=== PATIENT | male | born 1995 | race Caucasian/White ===

== ENCOUNTER → 2018-10-04 | Outpatient (CLI) | payer MEDICAID ==
--- NOTE | 2018-10-05 19:40 | MR ---
MR scan of the right wrist. History pain. Comparison none. TECHNIQUE: Multiplanar multiecho imaging of the right wrist was performed with no contrast. FINDINGS: On the T1 images there is abnormal decreased signal throughout the lunate bone which is somewhat smal l and consistent with chronic avascular necrosis. The other carpal bones appear intact. I see no frac ture line. The flexor and extensor tendons of the hand and wrist appear intact. The intercarpal joint spaces are fairly normal. The distal radius and ulna have normal signal pattern without evidence of edema. Ther e is minimal wrist joint effusion. There is mild soft tissue edema anterior to the distal radius and ulna epiphyses. 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 Mild wrist joint effusion consistent w ith nonspecific mild synovitis. No acute bony abnormality seen. Mild soft tissue edema noted anterior to the distal radius and ulna.
== END | disposition home or self-care (01) ==
LOC: RADMRIMAIN 14:32
PROVIDERS: ATTEND Orthopaedic Surgery
DX: M87.037 Idiopathic aseptic necrosis of right carpus (principal); M25.431 Effusion, right wrist

== ENCOUNTER 2018-11-01 20:26 | Emergency (ER) | payer MEDICAID ==
[2018-11-01 20:34] VITALS: BP 111/58; PULSE 98; RESP 18; TEMP 98.3
--- NOTE | 2018-11-01 20:51 | ED ---
General Adult HPI - General Chief complaint: Recheck/Abnormal Lab/Rx Stated complaint: Got cast wet Time Seen by Provider: 11/01/18 20:35 Source: patient, RN notes reviewed Mode of arrival: ambulatory Limitations: no limitations - History of Present Illness Initial comments: 23-year-old male presents emergency department with chief complaint of needing cast replaced. Patient states he had surgery on Sunday by Dr. Macias. Patient states that he was showering states that his bag leak causing his cast of it well. Patient called on-call orthopedic resident to be seen in emergency from for replacement. Patient states that he had surgery on his carpal bones of his right wrist. The states that the pain is controlled has no other complaints. - Related Data Allergies Allergy/AdvReac Type Severity Reaction Status Date / Time No Known Allergies Allergy Verified 11/01/18 20:34 Review of Systems ROS Statement: Those systems with pertinent positive or pertinent negative responses have been documented in the HPI. ROS Other: All systems not noted in ROS Statement are negative. Past Medical History Past Medical History: No Reported History History of Any Multi-Drug Resistant Organisms: None Reported Past Surgical History: Orthopedic Surgery Past Psychological History: No Psychological Hx Reported Smoking Status: Never smoker Past Alcohol Use History: Occasional Past Drug Use History: Marijuana General Exam Limitations: no limitations General appearance: alert, in no apparent distress Head exam: Present: atraumatic, normocephalic, normal inspection Respiratory exam: Present: normal lung sounds bilaterally. Absent: respiratory distress, wheezes, rales, rhonchi, stridor Cardiovascular Exam: Present: regular rate, normal rhythm, normal heart sounds. Absent: systolic murmur, diastolic murmur, rubs, gallop, clicks Extremities exam: Present: other (Right wrist there is a short arm cast in place, this was removed secondary to being wet, incision and sutures were evaluated there is no erythema no drainage. Neurovascular intact extremity) Course Vital Signs 11/01/18 20:32 Temperature 98.3 F Pulse Rate 98 Respiratory 18 Rate Blood Pressure 111/58 O2 Sat by Pulse 96 Oximetry Procedures - Cast Removal Reason for procedure: wet Cut Saw used: No Cast procedure: removal Post Removal Neuro Exam: intact Post Removal Vascular Exam: intact Patient Tolerated Procedure: well, no complications - Orthopedic Splinting/Casting Injury #1 Side: right Upper Extremity Injury Location: short arm, wrist Upper Extremity Immobilizer: volar splint, synthetic pre-padded splint Medical Decision Making - Medical Decision Making 23-year-old male presented for removal of his splinting, cast. This was removed secondary to being wet, incision was evaluated no erythema no drainage. This was wrapped with left bundle, short arm splint on the volar and dorsal aspect as this was there prior. Patient has appointment on Sunday and return parameters were discussed. Disposition Clinical Impression: Orthopedic cast removal, Aftercare for cast or splint check or change Disposition: HOME SELF-CARE Condition: Stable Instructions (If sedation given, give patient instructions): Splint Care (ED) Additional Instructions: Please return to the Emergency Department if symptoms worsen or any other concerns. Is patient prescribed a controlled substance at d/c from ED?: No Referrals: None,Stated [Primary Care Provider] - 1-2 days Time of Disposition: 20:51
== END 2018-11-01 20:59 | disposition home or self-care (01) ==
LOC: EC 20:26
DX: Z46.89 Encounter for fitting and adjustment of other specified devices (principal); Z47.89 Encounter for other orthopedic aftercare
CPT/HCPCS: 29125; 99282

== ENCOUNTER → 2020-04-08 | Outpatient (CLI) | payer MEDICAID | END | disposition home or self-care (01) | LOC: LABWHC1 10:54 | PROVIDERS: ATTEND Pediatrics Pediatric Infectious Diseases | DX: Z11.59 Encounter for screening for other viral diseases (principal) | CPT/HCPCS: U0003; C9803 ==